=== PATIENT | male | born 1945 | race Caucasian/White ===

== ENCOUNTER 2017-04-13 16:17 | Emergency (ER) | payer OTHER ==
[~2017-04-13] VITALS: Ht 180.3 cm; Wt 93.5 kg
[~2017-04-13 16:17] MED LIST: ASPIR-LOW81 MG PO; CINNAMON500 MG PO; GINSENG100 MG PO; GLIMEPIRIDE2 MG PO; LOVASTATIN10 MG PO; METFORMIN HCL1000 MG PO; TURMERIC500 MG PO
[2017-04-13 16:22] VITALS: BP 146/77
== END 2017-04-13 18:23 | disposition left against medical advice (07) ==
LOC: EME 16:17
DX: S01.91XA Laceration without foreign body of unspecified part of head, initial encounter (principal); Z53.21 Procedure and treatment not carried out due to patient leaving prior to being seen by health care provider